=== PATIENT | female | born 1945 | race Two or more races ===

== ENCOUNTER 2017-03-25 13:35 | Emergency (ER) | payer SELFPAY ==
[2017-03-25 13:57] VITALS: BP 121/70
[2017-03-25] MEDS ORDERED: DIPH,PERTUSS(ACELL),TET VAC/PF 0.5 ML IM-VACC ONE ×2 (14:30→15:33)
[2017-03-25 14:57] LABS: BLOOD UREA NITROGEN 28 mg/dL (7-18)
[2017-03-25 15:01] LABS: IS PT STATUS REG ER OR PRE ER? YES
== END 2017-03-25 15:48 | disposition home or self-care (01) ==
LOC: ED 15:20
DX: S40.212A Abrasion of left shoulder, initial encounter (principal); R55 Syncope and collapse; I10 Essential (primary) hypertension; W54.0XXA Bitten by dog, initial encounter; Y93.89 Activity, other specified; Y92.89 Other specified places as the place of occurrence of the external cause; Y99.8 Other external cause status
CPT/HCPCS: 36415; 71010; 80048; 82040; 84484; 85025; 90471; 90715; 93005